=== PATIENT | male | born 1990 | race Caucasian/White ===

== ENCOUNTER → 2017-06-01 | Emergency (ER) | payer OTHER ==
[~2017-06-01] VITALS: Ht 170.2 cm; Wt 68.0 kg
[~2017-06-01] MED LIST: AMOX-CLAV 875-1 EACH PO; KETO10TA2 PO
== END | disposition home or self-care (01) ==
LOC: ER 01:48
DX: J03.90 Acute tonsillitis, unspecified (principal)

== ENCOUNTER 2017-06-04 23:20 | Emergency (ER) | payer OTHER ==
[~2017-06-04] VITALS: Ht 170.2 cm; Wt 68.0 kg
== END 2017-06-05 09:11 | disposition home or self-care (01) ==
LOC: ER 23:20
DX: K52.9 Noninfective gastroenteritis and colitis, unspecified (principal); J06.9 Acute upper respiratory infection, unspecified

== ENCOUNTER 2017-07-06 00:15 | Emergency (ER) | payer OTHER ==
[~2017-07-06] VITALS: Ht 170.2 cm; Wt 66.2 kg
== END 2017-07-06 03:08 | disposition home or self-care (01) ==
LOC: ER 00:15
DX: B35.6 Tinea cruris (principal)

== ENCOUNTER 2017-07-21 18:00 | Emergency (ER) | payer OTHER ==
[~2017-07-21] VITALS: Ht 170.2 cm; Wt 66.7 kg
== END 2017-07-21 20:25 | disposition home or self-care (01) ==
LOC: ER 18:00
DX: R53.1 Weakness (principal); F41.8 Other specified anxiety disorders

== ENCOUNTER → 2017-10-23 | Emergency (ER) | payer OTHER ==
[~2017-10-23] VITALS: Ht 170.2 cm; Wt 65.8 kg
== END | disposition home or self-care (01) ==
LOC: ER 06:40
DX: B34.9 Viral infection, unspecified (principal)